=== PATIENT | female | born 1935 | race Native Hawaiian/Other Pacific Islander ===

== ENCOUNTER 2022-08-18 15:35 | Outpatient (CLI) | payer OTHER ==
[2022-08-18 16:06] LABS: PLATELET COUNT 278 K/uL (152-353)
[2022-08-18 16:48] LABS: POTASSIUM 4.7 mmol/L (3.6-5.2)
== END 2022-08-18 19:21 | disposition home or self-care (01) ==
LOC: LAB 15:35
PROVIDERS: ATTEND Physician Assistant Medical
DX: I10 Essential (primary) hypertension (principal)
CPT/HCPCS: 80048; 81000; 85027